=== PATIENT | female | born 1990 | race Caucasian/White ===

== ENCOUNTER 2016-06-23 07:35 | Emergency (ER) ==
[2016-06-23 07:41] VITALS: BP 116/76; TEMP 98.2; BMI 22.4
--- NOTE | 2016-06-23 07:59 | ED.PDOC ---
General ED Provider: Dr. LESLYE MARTIN JR Chief Complaint: Shoulder Pain/Injury Stated Complaint: patient states her co-worker had just mopped the floor and then they "started wrestling" and she fell landing on left shoulder and hitting head. denies loc. patient has bruising to left shoulder.[End]06/21/16 98.2 89 20 98% 116/76 9/10 Time Seen by Physician: 08:04 Mode of Arrival: Walk-In Information Source: Patient Nursing and Triage Documentation Reviewed and Agree: No Review of Systems - Review Of Systems Constitutional: Reports: No symptoms Eyes: Reports: No symptoms Ears, Nose, Mouth, Throat: Reports: No symptoms Respiratory: Reports: No symptoms Cardiac: Reports: No symptoms GI: Reports: No symptoms : Reports: No symptoms Musculoskeletal: Reports: Joint pain, Muscle pain, Other Skin: Reports: Bruising ( left ant-post abrasion tender swelling decr-rom ecchy) Neurological: Reports: No symptoms Endocrine: Reports: No symptoms Hematologic/Lymphatic: Reports: No symptoms All Other Systems: Other Past Medical History - Past Medical History Previously Healthy: Yes Endocrine: Reports: None Cardiovascular: Reports: None, Other (HEART MURMUR) Respiratory: Reports: Asthma Hematological: Reports: None Gastrointestinal: Reports: None Genitourinary: Reports: None Neuro/Psych: Reports: Bipolar Disorder Musculoskeletal: Reports: None Cancer: Reports: None Last Menstrual Period: 3 WEEKS AGO - Surgical History General Surgical History: Reports: None - Family History Family History: Reports: Unknown - Social History Smoking Status: Never smoker Hx Substance Use: Yes (MARIJUANA) Alcohol Screening: Occasionally Physical Exam - Physical Exam Appearance: Well-appearing, Thin Pain Distress: Moderate Eyes: VANIA, EOMI, Conjunctiva clear ENT: Ears normal, Nose normal, Oropharynx normal Neck: Supple Respiratory: Airway patent, Breath sounds clear, Breath sounds equal, Respirations nonlabored Cardiovascular: RRR, Pulses normal, No rub, No murmur GI/: Soft, Nontender, No masses, Bowel sounds normal, No Organomegaly Musculoskeletal: Limited ROM (left shoulder tender teres suprascapular deltiod no pectoral tenderness failt discoloration left ant post shoulder tender left scalp continued headache right skull nontender to percussion) Skin: Warm, Dry Neurological: Sensation intact, Motor intact, Reflexes intact, Cranial nerves intact (to testing no defecits), Alert, Oriented Psychiatric: Affect appropriate, Mood appropriate Interpretation - Radiology Interpretation Radiology Interpretation By: Radiologist Radiology Results: Negative Exam Interpreted: CT Scan (head) Radiology Interpretation By: Radiologist Radiology Results: Positive Exam Interpreted: Other (comminuted mildly displaced fracture distal left clavicle) Critical Care Note - Critical Care Note Total Time (mins): 0 Course - Course Orders, Labs, Meds: Lab Review 06/23/16 08:10 Urine Test Negative Orders Category Date Time Status Shoulder immobilizer [ED SPLINT APPLICATION] .ONCE EMERGENCY 06/23/16 09:22 Active URINE Stat LAB 06/23/16 08:[address] HEAD W/O CONTRAST Stat RADS 06/23/16 08:18 Completed SHOULDER, LEFT MIN 2V Stat RADS 06/23/16 07:59 Completed Vital Signs: Temp Pulse Resp BP Pulse Ox 06/23/16 07:37 98.2 F 89 20 116/76 98 Departure - Departure Time of Disposition: 09:30 Disposition: HOME SELF-CARE Discharge Problem: Clavicle fracture Qualifiers: Encounter type: initial encounter Clavicle location: lateral end Fracture type : closed Fracture alignment: displaced Laterality: left Qualifier Code: ( S42.032A) Displaced fracture of lateral end of left clavicle, initial encounter for closed fracture Instructions: Clavicle Fracture (ED) Condition: Good Pt referred to PMD for follow-up: Yes Additional Instructions: follow up PMD for consult orthopedics may follow up with [facility] [place] for pain not controlled by Tylenol Tylenol 650mg four times a day as needed; no more than 3500mg per 24 hours( [place] has Tylenol in it) no use left arm for two weeks Prescriptions: Hydrocodone Bit/Acetaminophen [[place] 5-325] 1 - 2 tab PO Q6HR PRN #20 tablet PRN Reason: pain Allergies/Adverse Reactions: Allergies nickel Adverse Reaction (Verified 06/23/16 07:41) Penicillins Adverse Reaction (Verified 06/23/16 07:41) Sulfa (Sulfonamide Antibiotics) Adverse Reaction (Verified 06/23/16 07:41) Home Medications: Ambulatory Orders Hydrocodone Bit/Acetaminophen [[place] 5-325] 1 - 2 tab PO Q6HR PRN #20 tablet
[2016-06-23 08:54] LABS: URINE PREGNANCY INTERNAL QC INTERNAL QC VALID
--- NOTE | 2016-06-23 09:18 | DI ---
EXAM: Three views of the left shoulder. History: Left shoulder trauma. Findings / impression: Mild to moderately displaced comminuted fracture of the distal left clavicle . No dislocation. The glenohumeral joint is intact.
--- NOTE | 2016-06-23 09:28 | CT ---
EXAM: CT Head HISTORY: Left headache, 3 days post fall COMPARISON: 05/05/2008 TECHNIQUE: CT head performed without contrast FINDINGS: There is no mass effect, midline shift, or intracranial hemmorhage. Sanderson white different iation is preserved. There is no extra-axial collection. The ventricles, sulci, and basal cisterns are patent and symmetric. There is no depressed calvarial fracture. The mastoid air cells are horace ar. The visualized paranasal sinuses are clear. IMPRESSION: No acute intracranial abnormality.
== END 2016-06-23 09:52 | disposition home or self-care (01) ==
LOC: ED 07:35
DX: S42.032A Displaced fracture of lateral end of left clavicle, initial encounter for closed fracture (principal); S09.90XA Unspecified injury of head, initial encounter; W01.0XXA Fall on same level from slipping, tripping and stumbling without subsequent striking against object, initial encounter
CPT/HCPCS: 81025; 99283

== ENCOUNTER 2017-05-17 11:04 | Emergency (ER) ==
[2017-05-17 11:08] VITALS: BP 116/76; TEMP 98.6; BMI 20.5
--- NOTE | 2017-05-17 12:19 | ED.PDOC ---
General ED Provider: Dr. OLINDA NEGRETE Chief Complaint: Respiratory Complaint Stated Complaint: high blood pressure Time Seen by Physician: 11:00 (in ED FOR HIGH BP WAS AT HIS DENTAL OFICE SYSTOLIC WAS 220 /100) Mode of Arrival: Walk-In Information Source: Patient Exam Limitations: No limitations Nursing and Triage Documentation Reviewed and Agree: Yes (NO CHEST PAIN) Reviewed sepsis parameters & appropriate labs ordered?: Yes System Inflammatory Response Syndrome: Not Applicable Sepsis Protocol: For patient's 13 years and over: Temp is 96.8 and below OR 101 and greater Pulse >90 BPM Resp >20/minute Acutely Altered Mental Status Are patient's symptoms suggestive of a new infection, such as: -Pneumonia -Skin, Soft Tissue -Endocarditis -UTI -Bone, Joint Infection -Implantable Device -Acute Abdominal Infection -Wound Infection -Meningitis -Blood Stream Catheter Infection -Unknown System Inflammatory Response Syndrome: Not Applicable Cardiovascular Complaint Exam - Chest Pain Complaint/Exam Onset: Gradual Duration: THIS MORNING AT DENTAL OFFICE NEGAT Symptoms Are: Still present Timing: Constant Length of Chest Pain Episodes: 0 Initial Severity: Moderate Current Severity: Mild Past Medical History - Past Medical History Previously Healthy: Yes Endocrine: Reports: None Cardiovascular: Reports: None, Other (HEART MURMUR) Respiratory: Reports: Asthma Hematological: Reports: None Gastrointestinal: Reports: None Genitourinary: Reports: None Neuro/Psych: Reports: Bipolar Disorder Musculoskeletal: Reports: None Cancer: Reports: None Last Menstrual Period: 2 weeks ago - Surgical History General Surgical History: Reports: None - Family History Family History: Reports: Unknown - Social History Smoking Status: Never smoker Hx Substance Use: No Alcohol Screening: None - Immunizations Tetanus Shot up to Date: No Course - Course Orders, Labs, Meds: Lab Review 05/17/17 05/17/17 11:15 11:40 Urine Test Negative Influenza A (Rapid) Negative by naat Influenza B (Rapid) Negative by naat Orders Category Date Time Status FLU A/B MOLECULAR Stat LAB 05/17/17 11:15 Completed MOLECULAR GROUP A STREP Stat LAB 05/17/17 11:15 Completed URINE Stat LAB 05/17/17 11:40 Completed CHEST, 2 VIEWS PA & LAT Stat RADS 05/17/17 11:22 Ordered Vital Signs: Temp Pulse Resp BP Pulse Ox 05/17/17 11:04 98.6 F 76 16 116/76 98 KELI Risk Score KELI Risk Score: Risk Score Odds of by 30D 0 0.1 (0.1-0.2) 1 0.3 (0.2-0.3) 2 0.4 (0.3-0.5) 3 0.7 (0.6-0.9) 4 1.2 (1.0-1.5) 5 2.2 (1.9-2.6) 6 3.0 (2.5-3.6) 7 4.8 (3.8-6.1) Departure - Departure Allergies/Adverse Reactions: Allergies nickel Adverse Reaction (Verified 06/23/16 07:41) Penicillins Adverse Reaction (Verified 06/23/16 07:41) Sulfa (Sulfonamide Antibiotics) Adverse Reaction (Verified 06/23/16 07:41)
--- NOTE | 2017-05-17 12:23 | ED.PDOC ---
General ED Provider: Dr. OLINDA NEGRETE Chief Complaint: Respiratory Complaint Mode of Arrival: Walk-In Information Source: Patient Sepsis Protocol: For patient's 13 years and over: Temp is 96.8 and below OR 101 and greater Pulse >90 BPM Resp >20/minute Acutely Altered Mental Status Are patient's symptoms suggestive of a new infection, such as: -Pneumonia -Skin, Soft Tissue -Endocarditis -UTI -Bone, Joint Infection -Implantable Device -Acute Abdominal Infection -Wound Infection -Meningitis -Blood Stream Catheter Infection -Unknown Cardiovascular Complaint Exam - Hypertension Complaint/Exam Onset/Duration: TODAY AT DENTAL OFFICE 200/100 DECIDED TO COME TO ED NEGATIVE CHEST PAIN Symptoms Are: Still present Aggravating: Reports: None Alleviating: Reports: None Associated Signs and Symptoms: Denies: Chest pain, Vision changes, Anxiety, Recent stress, Headache, Numbness, Tingling, Weakness, Dizziness, Short of air, Swelling Related History: Reports: Similar episode Related Surgical History: Reports: None Cardiac Risk Factors: Reports: Hypertension Recent Change in Medications: No A/V Nicking: No Papilledema Present: No JVD Present: No Carotid Bruit Present: No Femoral Pulses Bounding: No Differential Diagnoses: Hypertension Quality Indicator For Non-Traumatic Chest Pain/Syncope: EKG Performed Review of Systems - Review Of Systems Constitutional: Reports: No symptoms Eyes: Reports: No symptoms Ears, Nose, Mouth, Throat: Reports: No symptoms Respiratory: Reports: No symptoms Cardiac: Reports: No symptoms GI: Reports: No symptoms : Reports: No symptoms Musculoskeletal: Reports: No symptoms Skin: Reports: No symptoms Neurological: Reports: No symptoms Endocrine: Reports: No symptoms Hematologic/Lymphatic: Reports: No symptoms All Other Systems: Reviewed and Negative Past Medical History - Past Medical History Previously Healthy: Yes Endocrine: Reports: None Cardiovascular: Reports: None, Other (HEART MURMUR) Respiratory: Reports: Asthma Hematological: Reports: None Gastrointestinal: Reports: None Genitourinary: Reports: None Neuro/Psych: Reports: Bipolar Disorder Musculoskeletal: Reports: None Cancer: Reports: None Last Menstrual Period: 2 weeks ago - Surgical History General Surgical History: Reports: None - Family History Family History: Reports: Unknown - Social History Smoking Status: Never smoker Hx Substance Use: No Alcohol Screening: None - Immunizations Tetanus Shot up to Date: No Physical Exam - Physical Exam Appearance: Well-appearing, No pain distress, Well-nourished Eyes: VANIA, EOMI, Conjunctiva clear ENT: Ears normal, Nose normal, Oropharynx normal Respiratory: Airway patent, Breath sounds clear, Breath sounds equal, Respirations nonlabored Cardiovascular: RRR, Pulses normal, No rub, No murmur GI/: Soft, Nontender, No masses, Bowel sounds normal, No Organomegaly Musculoskeletal: Normal strength, ROM intact, No edema, No calf tenderness Skin: Warm, Dry, Normal color Neurological: Sensation intact, Motor intact, Reflexes intact, Cranial nerves intact, Alert, Oriented Psychiatric: Affect appropriate, Mood appropriate Course - Course Orders, Labs, Meds: Lab Review 05/17/17 05/17/17 11:15 11:40 Urine Test Negative Influenza A (Rapid) Negative by naat Influenza B (Rapid) Negative by naat Orders Category Date Time Status FLU A/B MOLECULAR Stat LAB 05/17/17 11:15 Completed MOLECULAR GROUP A STREP Stat LAB 05/17/17 11:15 Completed URINE Stat LAB 05/17/17 11:40 Completed CHEST, 2 VIEWS PA & LAT Stat RADS 05/17/17 11:22 Ordered Vital Signs: Temp Pulse Resp BP Pulse Ox 05/17/17 11:04 98.6 F 76 16 116/76 98 KELI Risk Score KELI Risk Score: Risk Score Odds of by 30D 0 0.1 (0.1-0.2) 1 0.3 (0.2-0.3) 2 0.4 (0.3-0.5) 3 0.7 (0.6-0.9) 4 1.2 (1.0-1.5) 5 2.2 (1.9-2.6) 6 3.0 (2.5-3.6) 7 4.8 (3.8-6.1) Departure - Departure Allergies/Adverse Reactions: Allergies nickel Adverse Reaction (Verified 06/23/16 07:41) Penicillins Adverse Reaction (Verified 06/23/16 07:41) Sulfa (Sulfonamide Antibiotics) Adverse Reaction (Verified 06/23/16 07:41)
--- NOTE | 2017-05-17 12:29 | DI ---
Exam: Chest two-view HISTORY: Cough. Comparison: 12/16/2009. FINDINGS: Two views of the chest demonstrate hyper expanded lungs with no evidence of pneumonia or e harman. Calcified granulomata are again noted. The heart is normal in size and configuration. The pulm onary vasculature is not congested. The skeletal structures are intact. Thoracic levoscoliosis is ag ain noted. IMPRESSION: No acute cardiopulmonary disease.
--- NOTE | 2017-05-17 12:35 | ED.PDOC ---
General ED Provider: Dr. OLINDA NEGRETE Chief Complaint: Respiratory Complaint Stated Complaint: FLU LIKE SYMP Time Seen by Physician: 11:00 Mode of Arrival: Walk-In Information Source: Patient Exam Limitations: No limitations Nursing and Triage Documentation Reviewed and Agree: Yes Reviewed sepsis parameters & appropriate labs ordered?: Yes (INDERJIT PRESENT AT ALL TIMES ) System Inflammatory Response Syndrome: Not Applicable Sepsis Protocol: For patient's 13 years and over: Temp is 96.8 and below OR 101 and greater Pulse >90 BPM Resp >20/minute Acutely Altered Mental Status Are patient's symptoms suggestive of a new infection, such as: -Pneumonia -Skin, Soft Tissue -Endocarditis -UTI -Bone, Joint Infection -Implantable Device -Acute Abdominal Infection -Wound Infection -Meningitis -Blood Stream Catheter Infection -Unknown System Inflammatory Response Syndrome: Not Applicable EENT Complaint Exam - Throat Complaint/Exam Onset/Duration: 1 WEEK Symptoms Are: Still present Timimg: Intermittent Initial Severity: Mild Current Severity: Mild Aggravating: Reports: None Alleviating: Reports: None Associated Signs and Symptoms: Reports: Cough, Nasal congestion. Denies: Fever , Dysphagia, Drooling, Foreign body sensation, Chills, Wheezing, Hoarseness, Sinus discomfort, Difficulty breathing, Lethargy, Irritability, Decreased activity, Vomiting, Diarrhea, Decreased hearing, Ear drainage Uvula Midline: Yes Savannah-tonsillar Fluctuence: No Scarlatinaform Rash Present: No Stridor Present: No Sinus Tenderness Present: No Tonsillar Hypertrophy Present: No Tonsillar Exudate Present: No [place]annah-tonsillar Swelling Present: No Adenopathy Present: No Splenomegaly Present: No Differential Diagnoses: URI Review of Systems - Review Of Systems Constitutional: Reports: No symptoms Eyes: Reports: No symptoms Ears, Nose, Mouth, Throat: Reports: Throat pain Respiratory: Reports: Cough Cardiac: Reports: No symptoms GI: Reports: No symptoms : Reports: No symptoms Musculoskeletal: Reports: No symptoms Skin: Reports: No symptoms Neurological: Reports: No symptoms Endocrine: Reports: No symptoms Hematologic/Lymphatic: Reports: No symptoms All Other Systems: Reviewed and Negative Past Medical History - Past Medical History Previously Healthy: Yes Endocrine: Reports: None Cardiovascular: Reports: None, Other (HEART MURMUR) Respiratory: Reports: Asthma Hematological: Reports: None Gastrointestinal: Reports: None Genitourinary: Reports: None Neuro/Psych: Reports: Bipolar Disorder Musculoskeletal: Reports: None Cancer: Reports: None Last Menstrual Period: 2 weeks ago - Surgical History General Surgical History: Reports: None - Family History Family History: Reports: Unknown - Social History Smoking Status: Never smoker Hx Substance Use: No Alcohol Screening: None - Immunizations Tetanus Shot up to Date: No Physical Exam - Physical Exam Appearance: Well-appearing, No pain distress, Well-nourished Eyes: VANIA, EOMI, Conjunctiva clear ENT: Ears normal, Nose normal, Oropharynx normal Respiratory: Airway patent, Breath sounds clear, Breath sounds equal, Respirations nonlabored Cardiovascular: RRR, Pulses normal, No rub, No murmur GI/: Soft, Nontender, No masses, Bowel sounds normal, No Organomegaly Musculoskeletal: Normal strength, ROM intact, No edema, No calf tenderness Skin: Warm, Dry, Normal color Neurological: Sensation intact, Motor intact, Reflexes intact, Cranial nerves intact, Alert, Oriented Psychiatric: Affect appropriate, Mood appropriate Interpretation - Radiology Interpretation Radiology Interpretation By: Radiologist Radiology Results: No acute changes Critical Care Note - Critical Care Note Total Time (mins): 0 Course - Course Orders, Labs, Meds: Lab Review 05/17/17 05/17/17 11:15 11:40 Urine Test Negative Influenza A (Rapid) Negative by naat Influenza B (Rapid) Negative by naat Orders Category Date Time Status FLU A/B MOLECULAR Stat LAB 05/17/17 11:15 Completed MOLECULAR GROUP A STREP Stat LAB 05/17/17 11:15 Completed URINE Stat LAB 05/17/17 11:40 Completed CHEST, 2 VIEWS PA & LAT Stat RADS 05/17/17 11:22 Completed Vital Signs: Temp Pulse Resp BP Pulse Ox 05/17/17 11:04 98.6 F 76 16 116/76 98 Departure - Departure Time of Disposition: 12:34 Disposition: HOME SELF-CARE Discharge Problem: Cough, Viral syndrome Instructions: Viral Syndrome (ED) Condition: Good Pt referred to PMD for follow-up: Yes IPMP verified?: No Additional Instructions: Please call your Family Physician as soon as possible to schedule a follow-up appointment. Allergies/Adverse Reactions: Allergies nickel Adverse Reaction (Verified 06/23/16 07:41) Penicillins Adverse Reaction (Verified 06/23/16 07:41) Sulfa (Sulfonamide Antibiotics) Adverse Reaction (Verified 03/30/17 07:41) Disposition Discussed With: Patient, Family
== END 2017-05-17 12:41 | disposition home or self-care (01) ==
LOC: ED 11:04
DX: B34.9 Viral infection, unspecified (principal); R05 Cough
CPT/HCPCS: 81025; 87502; 87651; 99282

== ENCOUNTER 2017-05-21 09:48 | Inpatient (IN) ==
[2017-05-21] MEDS ORDERED: DUONEB NEB STA (09:56)
[2017-05-21] MEDS ORDERED: SODIUM CHLORIDE 1,000 ML IV STA (10:26)
[2017-05-21] MEDS ORDERED: ATIVAN IVP STA (10:33)
--- NOTE | 2017-05-21 10:41 | DI ---
EXAM: PA and lateral views of the chest HISTORY: Cough COMPARISON: Chest Xray from 05/17/2017 FINDINGS: There is a new infiltrate in the right middle lobe. There are also some minimal patchy inc reased lung markings in the lower lateral aspect of the right lung base. There is some flattening of the hemidiaphragms. Cardiac and mediastinal silhouettes show no acute abnormality. No acute osseous or soft tissue abnormalities. IMPRESSION: 1. New right middle lobe pneumonia with some minimal increased lung markings also noted in the right lateral lung base.
[2017-05-21] MEDS ORDERED: LEVAQUIN 750 MG in PREMIX 150 ML D5W 1 BAG IV STA (10:47)
[2017-05-21] MEDS ORDERED: LEVAQUIN 150 ML IV ONE (11:02)
--- NOTE | 2017-05-21 12:01 | ED.PDOC ---
General ED Provider: Dr. REFUGIO CAMPOS-ER Chief Complaint: Cough Stated Complaint: was seen 3 days ago and placed on steroids for resp symptoms-- now with cough and dyspnea Time Seen by Physician: 09:55 Mode of Arrival: Walk-In Information Source: Patient Exam Limitations: No limitations Nursing and Triage Documentation Reviewed and Agree: Yes Reviewed sepsis parameters & appropriate labs ordered?: Yes System Inflammatory Response Syndrome: Not Applicable Sepsis Protocol: For patient's 13 years and over: Temp is 96.8 and below OR 101 and greater Pulse >90 BPM Resp >20/minute Acutely Altered Mental Status Are patient's symptoms suggestive of a new infection, such as: -Pneumonia -Skin, Soft Tissue -Endocarditis -UTI -Bone, Joint Infection -Implantable Device -Acute Abdominal Infection -Wound Infection -Meningitis -Blood Stream Catheter Infection -Unknown Respiratory Complaint Exam - Shortness of Air Complaint/Exam Onset/Duration: 3 days Symptoms Are: Still present Timing: Intermittent Initial Severity: Mild Current Severity: Moderate Character: Reports: Dyspnea at rest, Dyspnea on exertion Aggravating: Reports: None Alleviating: Reports: Spontaneous resolution Associated Signs and Symptoms: Reports: Cough. Denies: Wheezing, Chest pain with cough, Chest pain, Fever, Chills, Diaphoresis, Nasal congestion, Dizziness , Calf pain, Calf swelling, Edema, Rapid breathing, Labored breathing, Decreased intake History of Healthcare-Acquired Pneumonia: No Tuberculosis Risk Factors: Reports: None Home Oxygen Use: No Stridor Present: No Tracheal Deviation: No Subcutaneous Emphysema: No Accessory Muscle Use: Yes Retractions: Not Present Diminished Breath Sounds: No Prolonged Expiratory Phase: No Unable to Speak Full Sentences: No Fatigue: No Leg Swelling: No Nicole's Sign Present: No Grunting Respirations: No Kussmaul Respirations: No Differential Diagnoses: Pneumonia, Bronchitis Review of Systems - Review Of Systems Constitutional: Reports: No symptoms Eyes: Reports: No symptoms Ears, Nose, Mouth, Throat: Reports: No symptoms Respiratory: Reports: Cough, Short of air Cardiac: Reports: No symptoms GI: Reports: No symptoms : Reports: No symptoms Musculoskeletal: Reports: No symptoms Skin: Reports: No symptoms Neurological: Reports: No symptoms Endocrine: Reports: No symptoms Hematologic/Lymphatic: Reports: No symptoms All Other Systems: Reviewed and Negative Past Medical History - Past Medical History Previously Healthy: Yes Endocrine: Reports: None Cardiovascular: Reports: None, Other (HEART MURMUR) Respiratory: Reports: Asthma Hematological: Reports: None Gastrointestinal: Reports: None Genitourinary: Reports: None Neuro/Psych: Reports: Bipolar Disorder Musculoskeletal: Reports: None Cancer: Reports: None Last Menstrual Period: TWO WEEKS AGO (PATIENT HAS IRREGULAR PERIODS) - Surgical History General Surgical History: Reports: None - Family History Family History: Reports: Unknown - Social History Smoking Status: Never smoker Hx Substance Use: No Alcohol Screening: None - Immunizations Tetanus Shot up to Date: Yes Physical Exam - Physical Exam Appearance: Well-appearing, No pain distress, Well-nourished Eyes: VANIA, EOMI, Conjunctiva clear ENT: Ears normal, Nose normal, Oropharynx normal Neck: Supple Respiratory: Airway patent, Breath sounds equal, Crackles Cardiovascular: RRR, Pulses normal, No rub, No murmur GI/: Soft Musculoskeletal: Normal strength, ROM intact, No edema, No calf tenderness Skin: Warm, Dry, Normal color Neurological: Sensation intact, Motor intact, Reflexes intact, Cranial nerves intact, Alert, Oriented Psychiatric: Affect appropriate, Mood appropriate, Anxious Interpretation - Radiology Interpretation Radiology Interpretation By: Radiologist Radiology Results: Positive Exam Interpreted: CT Scan Physician Notification - Case Discussed Physician Notified: dr vargas Time of Notification: 12:59 Critical Care Note - Critical Care Note Total Time (mins): 0 Course - Course Hematology/Chemistry: 05/21/17 10:45 05/21/17 10:45 Orders, Labs, Meds: Lab Review 05/21/17 05/21/17 05/21/17 10:00 10:27 10:45 WBC 16.29 H RBC 4.31 Hgb 13.2 Hct 36.4 L MCV 84.5 MCH 30.6 MCHC 36.3 H RDW Coeff of Claus 12.5 Plt Count 224 Immature Gran % (Auto) 0.5 Neut % (Auto) 69.7 Lymph % (Auto) 21.2 [place] % (Auto) 8.2 Eos % (Auto) 0.0 Baso % (Auto) 0.4 Immature Gran # (Auto) 0.1 Neut # 11.4 H Lymph # 3.5 H [place] # 1.3 Eos # 0.0 Baso # 0.1 Puncture Site Rr O2 Saturation 99.0 ABG pH 7.550 H* ABG pCO2 23.5 L ABG pO2 106.0 H ABG HCO3 20.6 L ABG Total CO2 21 L ABG Base Excess -2 Patrick Test + FiO2 % 21.0 Sodium Potassium Chloride Carbon Dioxide Anion Gap BUN Creatinine Estimated GFR (MDRD) BUN/Creatinine Ratio Glucose Calcium Total Bilirubin AST ALT Alkaline Phosphatase Total Protein Albumin Globulin Albumin/Globulin Ratio Serum , Qual Influenza A (Rapid) Negative by naat Influenza B (Rapid) Negative by naat 05/21/17 05/21/17 10:45 10:45 WBC RBC Hgb Hct MCV MCH MCHC RDW Coeff of Claus Plt Count Immature Gran % (Auto) Neut % (Auto) Lymph % (Auto) [place] % (Auto) Eos % (Auto) Baso % (Auto) Immature Gran # (Auto) Neut # Lymph # [place] # Eos # Baso # Puncture Site O2 Saturation ABG pH ABG pCO2 ABG pO2 ABG HCO3 ABG Total CO2 ABG Base Excess Patrick Test FiO2 % Sodium 139 Potassium 2.7 L* Chloride 106 Carbon Dioxide 20 L Anion Gap 15.7 BUN 6 L Creatinine 0.59 L Estimated GFR (MDRD) 123.00 BUN/Creatinine Ratio 10.16 Glucose 112 H Calcium 8.9 Total Bilirubin 0.9 AST 11 L ALT 14 Alkaline Phosphatase 65 Total Protein 7.0 Albumin 3.5 Globulin 3.5 Albumin/Globulin Ratio 1.00 Serum , Qual Negative Influenza A (Rapid) Influenza B (Rapid) Orders Category Date Time Status ABG DRAW REQUEST Stat CARDIO 05/21/17 10:27 Completed NEBULIZER TREATMENT Stat CARDIO 05/21/17 09:56 Completed NPO REMINDER: IMAGING ONCE CARE 05/21/17 10:30 Completed IV [ED IV/MEDIPORT/POWERPORT] .ONCE EMERGENCY 05/21/17 10:26 Active ARTERIAL BLOOD GAS [ABG] Stat LAB 05/21/17 10:27 Completed BLOOD CULTURE (ED ONLY) Stat LAB 05/21/17 10:45 Received CBC W/ AUTO DIFF Stat LAB 05/21/17 10:45 Completed CMP [COMPREHENSIVE METABOLIC PANEL] Stat LAB 05/21/17 10:45 Completed FLU A/B MOLECULAR Stat LAB 05/21/17 10:00 Completed SERUM Stat LAB 05/21/17 10:45 Completed 0.9 % Sodium Chloride [Saline Flush] MEDS 05/21/17 10:26 Active 1 syr IVF PRN PRN Ipratropium/Albuterol Neb [Duoneb] MEDS 05/21/17 09:56 Discontinued 1 vial NEB ONCE STA Levofloxacin/D5w [Levaquin] 150 ml MEDS 05/21/17 11:02 Discontinued IV .STK-MED Levofloxacin/D5w [Levaquin] 750 mg MEDS 05/21/17 10:47 Discontinued Premix 150 ml D5w 1 bag IV ONCE Lorazepam Inj [Ativan] MEDS 05/21/17 10:33 Discontinued 0.5 mg IVP ONCE STA Ondansetron HCl/Pf [Zofran 4 mg/2 ml] MEDS 05/21/17 12:56 Discontinued 4 mg IVP ONCE STA Potassium Chloride Additive [Potassium Chloride 20 Meq MEDS 05/21/17 12:58 Ordered Vial-Additive Only] 20 meq 0.9 % Sodium Chloride [Sodium Chloride] 100 ml IV ONCE Potassium Chloride [K-Dur] MEDS 05/21/17 12:57 Discontinued 20 meq PO ONCE STA Sodium Chloride 0.9% [Sodium Chloride] 1,000 ml MEDS 05/21/17 10:26 Active IV 100 mls/hr CT CHEST PE PROTOCOL Stat RADS 05/21/17 10:29 Completed CXR [CHEST, 2 VIEWS PA & LAT] Stat RADS 05/21/17 09:56 Completed Medications Generic Name Dose Route Start Last Admin Trade Name Freq PRN Reason Stop Dose Admin Sodium Chloride 1,000 mls @ 100 mls/hr 05/21/17 10:26 05/21/17 11:15 Sodium Chloride IV 05/21/17 20:25 100 mls/hr .Q10H STA Administration Sodium Chloride 1 syr 05/21/17 10:26 Saline Flush IVF PRN PRN To flush IV Discontinued Medications Generic Name Dose Route Start Last Admin Trade Name Freq PRN Reason Stop Dose Admin Albuterol/Ipratropium 1 vial 05/21/17 09:56 05/21/17 10:06 Duoneb NEB 05/21/17 09:57 1 vial ONCE STA Administration Levofloxacin/Dextrose 750 mg/ 150 mls @ 100 mls/hr 05/21/17 10:47 05/21/17 11 :15 Dextrose IV 05/21/17 12:16 100 mls/hr ONCE STA Administration Lorazepam 0.5 mg 05/21/17 10:33 05/21/17 11:14 Ativan IVP 02/25/18 10:34 0.5 mg ONCE STA Administration Ondansetron HCl 4 mg 05/21/17 12:56 Zofran 4 Mg/2 Ml IVP 05/21/17 12:57 ONCE STA Potassium Chloride 20 meq 05/21/17 12:57 K-Dur PO 05/21/17 12:58 ONCE STA Vital Signs: Temp Pulse Resp BP Pulse Ox 05/21/17 09:49 99.3 F 83 18 125/78 98 Departure - Departure Time of Disposition: 12:59 Disposition: ADMITTED INPATIENT Discharge Problem: Pneumonia Qualifiers: Pneumonia type: due to unspecified organism Laterality: bilateral Lung location : unspecified part of lung Qualified Code(s): J18.9 - Pneumonia, unspecified organism Instructions: Pneumonitis (ED) Condition: Good Pt referred to PMD for follow-up: Yes IPMP verified?: No Allergies/Adverse Reactions: Allergies nickel Adverse Reaction (Verified 05/21/17 09:52) Penicillins Adverse Reaction (Verified 05/21/17 09:52) Sulfa (Sulfonamide Antibiotics) Adverse Reaction (Verified 05/21/17 09:52) Home Medications: Ambulatory Orders 1 [No Reported Medications] 05/21/17 Disposition Discussed With: Patient, Family
--- NOTE | 2017-05-21 12:50 | CT ---
EXAM: CT angiogram of the chest with contrast HISTORY: Dyspnea TECHNIQUE: Imaging of the chest was performed following the intravenous administration of contrast. 3 mm thin axial images and coronal and sagittal reconstructions and rotated 3-D reconstructions were provided for interpretation. Comparison none. FINDINGS: No definite filling defects are identified within the branches of the pulmonary arteries. The central pulmonary arteries are normal. The heart is normal size. There is a normal appearance o f the thoracic aorta. Infiltrates are seen in the left lower lobe and within the right middle lobe an d right lower lobe of the lung. There is no pleural effusion. Lungs are otherwise clear. No lytic or blastic lesions are seen within the osseous structures. IMPRESSION: There is no acute pulmonary embolism. Bilateral pneumonia.
[2017-05-21] MEDS ORDERED: ZOFRAN 4 MG/2 ML IVP STA (12:56)
[2017-05-21] MEDS ORDERED: K-DUR PO STA (12:57)
[2017-05-21] MEDS ORDERED: POTASSIUM CHLORIDE 20 MEQ VIAL-ADDITIVE ONLY 20 MEQ in SODIUM CHLORIDE 100 ML IV STA (12:58)
[2017-05-21] MEDS ORDERED: SODIUM CHLORIDE 0.9%-KCL 20 MEQ 1,000 ML IV SCH (13:00)
[2017-05-21] MEDS ORDERED: TYLENOL PO PRN (13:00)
[2017-05-21] MEDS ORDERED: ZOFRAN 4 MG/2 ML IVP PRN (13:04)
[2017-05-21 13:37] VITALS: BMI 20.4
[2017-05-21] MEDS: SODIUM CHLORIDE 0.9%-KCL 20 MEQ 1,000 ML IV SCH (14:47)
[2017-05-21] MEDS: XOPENEX 0.63 MG NEB SCH ×2 (18:16→22:35)
[2017-05-21] MEDS: ATIVAN PO SCH (21:45)
[2017-05-21] MEDS: SOLU-MEDROL 40 MG IVP SCH (21:45)
[2017-05-21] MEDS ORDERED: MOTRIN PO STA (22:28)
[2017-05-22] MEDS: XOPENEX 0.63 MG NEB SCH ×3 (05:02→17:05)
[2017-05-22] MEDS ORDERED: PHENERGAN WITH CODEINE 6.25/10 MG/5 ML ONE (08:25)
[2017-05-22] MEDS: LEVAQUIN 500 MG in PREMIX 100 ML D5W 1 BAG IV SCH (09:01)
[2017-05-22] MEDS: SODIUM CHLORIDE 0.9%-KCL 20 MEQ 1,000 ML IV SCH (09:02)
[2017-05-22] MEDS: LOVENOX SUBCUT SCH (09:03)
[2017-05-22] MEDS: SOLU-MEDROL 40 MG IVP SCH ×2 (09:03→20:58)
[2017-05-22] MEDS: PHENERGAN WITH CODEINE 6.25/10 MG/5 ML PO PRN (17:14)
[2017-05-22] MEDS: ATIVAN PO SCH (20:58)
[2017-05-23] MEDS: XOPENEX 0.63 MG NEB SCH ×5 (00:27→22:30)
[2017-05-23] MEDS: PHENERGAN WITH CODEINE 6.25/10 MG/5 ML PO PRN ×2 (02:46→20:41)
[2017-05-23] MEDS ORDERED: ATIVAN PO STA (08:50)
[2017-05-23] MEDS: LEVAQUIN 500 MG in PREMIX 100 ML D5W 1 BAG IV SCH (08:55)
[2017-05-23] MEDS: SOLU-MEDROL 40 MG IVP SCH ×2 (08:55→20:41)
[2017-05-23] MEDS: LOVENOX SUBCUT SCH (08:56)
[2017-05-23] MEDS: SODIUM CHLORIDE 0.9%-KCL 20 MEQ 1,000 ML IV SCH (09:02)
--- NOTE | 2017-05-23 09:05 | DI ---
EXAM: CHEST FRONTAL AND LATERAL VIEWS HISTORY: Bilateral pneumonia, follow-up. FINDINGS / IMPRESSION: Compared to 05/21/2017. Heart size and mediastinal contour remain within normal limits. Improving infiltrate which is thought to be in the right middle lobe with minimal residual. Lungs were otherwise clear. Normal vasculari ty. No pleural fluid.
[2017-05-23] MEDS: ATIVAN PO SCH (20:41)
[2017-05-24] MEDS: SODIUM CHLORIDE 0.9%-KCL 20 MEQ 1,000 ML IV SCH ×2 (04:07→11:48)
[2017-05-24] MEDS: PHENERGAN WITH CODEINE 6.25/10 MG/5 ML PO PRN (04:46)
[2017-05-24] MEDS: XOPENEX 0.63 MG NEB SCH ×2 (06:00→11:26)
[2017-05-24] MEDS: SOLU-MEDROL 40 MG IVP SCH (08:40)
[2017-05-24] MEDS: LOVENOX SUBCUT SCH (08:41)
[2017-05-24] MEDS: LEVAQUIN 500 MG in PREMIX 100 ML D5W 1 BAG IV SCH (08:41)
[2017-05-24 10:49] VITALS: BP 106/68; TEMP 98
--- NOTE | 2017-05-25 14:40 | DS ---
DATE OF SERVICE: 05/24/17 FINAL DIAGNOSIS: 1. Community acquired pneumonia, bibasilar 2. Leukocytosis secondary to pneumonia 3. Severe hypokalemia which has been corrected 4. Insomnia 5. ADHD 6. Paranoid 7. Bipolar DISCHARGE INSTRUCTIONS: Discharge the patient home. MEDICATIONS AT DISCHARGE/NEW PRESCRIPTIONS: ProAir inhaler PRN Prednisone 10mg PO twice a day Levaquin 500mg PO daily for 4 more day DIET INSTRUCTIONS: Regular diet ACTIVITY: As much as tolerated SMOKING: Never smoker DISEASE SPECIFIC EDUCATION: Pneumonia Antibiotic use and diarrhea been discussed and verbalized understanding. HOSPITAL COURSE: Riya Varner 26 year old female came to the emergency room with cough, congestion and shortness of breath was seen by Dr. Snyder. CT of chest showed the bilateral basilar pneumonia and Flu was negative. The patient is allergic to Penicillin so the patient was started on Levaquin and breathing treatments. The patient did have a fever 99.3. Lovenox for the DVT prophylaxis. Ativan was given to help her with the sleep. Solu-Medrol 40Q 12 hours was given. With the given treatment the patient was up and about walking and did not have any problems. Coughing has improved. For coughing we did give her the Phenergan with codeine. Potassium being replaced with IV Potassium and PO, Potassium came up to 2.8 and 3.3 and 3.7. Repeat chest x-ray was showing the improvement in the consolidation. At that time the patient being discharged home. TIME SPENT: MORE THAN 35 MINUTES MTDD
--- NOTE | 2017-05-25 15:14 | PN ---
DATE OF SERVICE: 05/22/17 SUBJECTIVE: Coughing and congestion is better. Potassium went up to 3.4. The patient is refusing to get the IV Potassium as it will hurt her. REVIEW OF SYSTEMS: CONSTITUTIONAL: No fever, no chills. HEENT: Normal. ENDOCRINE: No weight gain, no weight loss. CVS: No angina symptoms. No CHF symptoms. No palpitations. No atypical chest pain for CAD. No shortness of breath. No PND, no orthopnea. RESPIRATORY: Cough and congestion, no hemoptysis. Not able to get any phlegm, feeling like something is in the throat. GI: No nausea, no vomiting. No abdominal pain. : No hematuria. No polyuria. MUSCULOSKELETAL: No joint swelling. PSYCHIATRIC: Not anxious. No depression. No suicidal thoughts. No homicidal thoughts. SKIN: Intact. No rash. PHYSICAL EXAMINATION: V/S: Blood pressure 106/63, respiratory rate 20, heart rate 76, temperature 97.7 , saturation 97. HEENT: Normocephalic, atraumatic. NECK: Supple. No JVD, no carotid bruit. No lymphadenopathy. LUNGS: Decreased and basilar crackles. Clear to auscultation. No rales or rhonchi. HEART: S1, S2 normal. No S3. No murmur, gallop or regurgitation. ABDOMEN: Soft, nontender. Bowel sounds active. No rigidity. No rebound or guarding. No CVA tenderness. EXTREMITIES: No pedal edema. No clubbing or cyanosis MUSCULOSKELETAL: No joint swelling. NEUROLOGIC: Awake, alert, oriented times three. No focal deficit. LYMPHATIC: No lymph nodes palpable. SKIN: Intact. LABS: Sodium 140, potassium 3.3, chloride 109, bicarb 21, BUN 8, creatinine 0.59, WBC 8.42, hgb 12.4, hct 35.8, plt count 228. ASSESSMENT: 1. Community acquired pneumonia, bibasilar 2. Severe hypokalemia 3. Bipolar disorder 4. Depression 5. Substance use PLAN: 1. Continue the Levaquin, Xopenex and Phenergan with Codeine 2. Replace the Potassium 3. Keep checking the Potassium TIME SPENT: More than 35 minutes MTDD
--- NOTE | 2017-05-25 15:31 | HP ---
DATE OF SERVICE: 05/21/17 CHIEF COMPLAINT: Cough HISTORY OF PRESENT ILLNESS: This is a 26 year old female came to the emergency room for the worsening of the cough, congestion getting yellow/green phlegm. Initially was seen in the ER earlier this last week and was test for the flu and strep and was told it was negative. The patient also was told she didn't have bronchitis and was given some steroids and was discharged home. The patient started feeling worse and came back to the emergency room and seen by Dr. Snyder in the emergency room. Temperature was 99. WBC 16,000. ABG showed pH 7.550, pCO2 23.5, pO2 106 and potassium was 2.7. Chest x-ray as well as CT of the chest done which showed bilateral pneumonia. At that time the patient was admitted to the hospital for IV antibiotics, breathing treatments and the steroids. REVIEW OF SYSTEMS: CONSTITUTIONAL: Fever and chills. Weakness and tiredness. HEENT: Normal. ENDOCRINE: No weight gain; no weight loss. CVS: No chest pain. No PND, no orthopnea. Shortness of breath. No PND, no orthopnea. RESPIRATORY: Cough, Congestion. No hemoptysis. GI: No nausea, no vomiting. No abdominal pain. No melena. : No hematuria. No polyuria. MUSCULOSKELETAL: No joint swelling. PSYCHIATRIC: Not anxious. No depression. No suicidal thoughts. No homicidal thoughts. SKIN: Intact, no open lesions. PAST MEDICAL HISTORY: Heart murmur History of pneumonia GERD Urinary tract infection ADHD Paranoid disorder Bipolar disorder Substance use on weed PAST SURGICAL HISTORY: None PERSONAL HISTORY: Smoke week and smoking. Family history not significant. MEDICATIONS: Lorazepam Zofran Motrin ALLERGIES: Nickel Penicillin Sulfa PHYSICAL EXAMINATION: V/S: Temperature 98.2, pulse 85, respiratory rate 16, blood pressure 113/67 and pulse ox 98%. HEENT: Atraumatic, normocephalic. No scleral icterus. NECK: Supple. No JVD, no bruit. No lymphadenopathy. No thyromegaly. HEART: S1, S2 normal. No murmur. No cyanosis or clubbing. No ascites. LUNGS: Clear to auscultation. No rales or rhonchi. ABDOMEN: Soft, nontender. Bowel sounds are active. No CVA tenderness. No rigidity or guarding. EXTREMITIES: No pedal edema. No cyanosis or clubbing MUSCULOSKELETAL: Normal joints, no swelling. NEUROLOGIC: The patient is SKIN: Intact; no open lesions. LYMPHATIC: No lymph nodes palpable. LABS: Sodium 139, potassium 2.7, chloride 106, bicarb 20, BUN 6, creatinine 0.59, WBC 16.29, hgb 13.2, hct 36.4, plt count 224. ASSESSMENT: 1. Bilateral community acquired pneumonia 2. Severe hypokalemia 3. History of bipolar disorder 4. Eating disorder 5. Substance use disorder PLAN: 1. Admit patient to regular floor 2. CBC and CMP today and daily 3. IV fluids 4. Levaquin 750mg daily 5. Lovenox for the DVT prophylaxis 6. Xopenex 7. Solu-Medrol 40 Q 12 hours 8. IV fluids with Potassium 9. Daily I&Os TIME SPENT: MORE THAN 70 minutes MTDD
== END 2017-05-24 12:38 | disposition home or self-care (01) | DRG 195 ==
LOC: ED 09:48 → MEDSURG A 12:59
PROVIDERS: ADMIT Emergency Medicine; ATTEND Emergency Medicine
DX: J18.9 Pneumonia, unspecified organism (principal); R06.00 Dyspnea, unspecified; E87.6 Hypokalemia; D72.829 Elevated white blood cell count, unspecified; G47.00 Insomnia, unspecified; F90.9 Attention-deficit hyperactivity disorder, unspecified type; F60.0 Paranoid personality disorder; F31.9 Bipolar disorder, unspecified; F12.90 Cannabis use, unspecified, uncomplicated
CPT/HCPCS: 36415; 80053; 82803; 84132; 84703; 85025; 87040; 87502; 94640; 96365; 96375; 99285

== ENCOUNTER 2017-05-26 00:09 | Emergency (ER) ==
[2017-05-26 00:09] VITALS: BMI 20.4
[2017-05-26 00:21] VITALS: BP 121/82; TEMP 98
[2017-05-26] MEDS ORDERED: ATIVAN PO STA (00:38)
--- NOTE | 2017-05-26 00:43 | ED.PDOC ---
General ED Provider: Dr. RACHELE PERES Chief Complaint: Behavioral Complaint Stated Complaint: Patient was recently discharged from the hospital with pneumonia where she had been getting Ativan for anxiety due to steroids causing panic attacks. She was discharged with steroids tablet but not given any Ativan. Since discharge she has had severe anxiety feeling like her heart was beating fast and unable to breath. Time Seen by Physician: 00:15 Mode of Arrival: Walk-In Information Source: Patient Exam Limitations: No limitations Nursing and Triage Documentation Reviewed and Agree: Yes Reviewed sepsis parameters & appropriate labs ordered?: No System Inflammatory Response Syndrome: Not Applicable Sepsis Protocol: For patient's 13 years and over: Temp is 96.8 and below OR 101 and greater Pulse >90 BPM Resp >20/minute Acutely Altered Mental Status Are patient's symptoms suggestive of a new infection, such as: -Pneumonia -Skin, Soft Tissue -Endocarditis -UTI -Bone, Joint Infection -Implantable Device -Acute Abdominal Infection -Wound Infection -Meningitis -Blood Stream Catheter Infection -Unknown System Inflammatory Response Syndrome: Not Applicable Review of Systems - Review Of Systems Constitutional: Reports: No symptoms Eyes: Reports: No symptoms Ears, Nose, Mouth, Throat: Reports: No symptoms Respiratory: Reports: Cough, Short of air Cardiac: Reports: No symptoms GI: Reports: No symptoms : Reports: No symptoms Musculoskeletal: Reports: No symptoms Skin: Reports: No symptoms Neurological: Reports: Anxiety Endocrine: Reports: No symptoms Hematologic/Lymphatic: Reports: No symptoms All Other Systems: Reviewed and Negative Past Medical History - Past Medical History Previously Healthy: Yes Endocrine: Reports: None Cardiovascular: Reports: Other (HEART MURMUR) Respiratory: Reports: Asthma Hematological: Reports: None Gastrointestinal: Reports: None Genitourinary: Reports: None Neuro/Psych: Reports: Bipolar Disorder Musculoskeletal: Reports: None Cancer: Reports: None Last Menstrual Period: HAS IRREGULAR PERIODS Other Pertinent Past Medical History: Bulimia - Surgical History General Surgical History: Reports: None - Family History Family History: Reports: Unknown - Social History Smoking Status: Never smoker Hx Substance Use: No Alcohol Screening: None - Immunizations Tetanus Shot up to Date: (UNKNOWN) Physical Exam - Physical Exam Appearance: Ill-appearing Pain Distress: Mild Psychiatric: Anxious, Depressed Critical Care Note - Critical Care Note Total Time (mins): 0 Course - Course Orders, Labs, Meds: Orders Category Date Time Status Lorazepam [Ativan] MEDS 05/26/17 00:38 Discontinued 1 mg PO ONCE STA Medications Discontinued Medications Generic Name Dose Route Start Last Admin Trade Name Jamal PRN Reason Stop Dose Admin Lorazepam 1 mg 05/26/17 00:38 05/26/17 00:44 Ativan PO 05/26/17 00:39 1 mg ONCE STA Administration Vital Signs: Temp Pulse Resp BP Pulse Ox 05/26/17 00:11 98 F 93 H 24 121/82 98 Departure - Departure Time of Disposition: 01:20 Disposition: HOME SELF-CARE Discharge Problem: Acute anxiety Instructions: Panic Attack (ED) Condition: Good Pt referred to PMD for follow-up: Yes IPMP verified?: No Additional Instructions: Take Buspar as needed for anxiety . If it does not work then Try Ativan STOP taking Steroid Medications for now as it may be causing your anxiety. Complete your antibiotics. Prescriptions: Buspirone HCl 5 mg PO TID #20 tablet Lorazepam [Ativan] 0.25 mg PO BID #10 tablet Allergies/Adverse Reactions: Allergies nickel Adverse Reaction (Verified 05/26/17 00:20) Penicillins Adverse Reaction (Verified 05/26/17 00:20) Sulfa (Sulfonamide Antibiotics) Adverse Reaction (Verified 05/26/17 00:20) Home Medications: Ambulatory Orders Levofloxacin [Levaquin] 500 mg PO DAILY #4 tablet 05/24/17 Prednisone 10 mg PO BIDWM #10 tablet 05/24/17 Albuterol Sulfate 0.083% Neb [Albuterol 0.083% Neb] 1 vial NEB DIRECTED 05/26 Buspirone HCl 5 mg PO TID #20 tablet 05/26/17 Lorazepam [Ativan] 0.25 mg PO BID #10 tablet 05/26/17 Disposition Discussed With: Patient, Family
== END 2017-05-26 01:28 | disposition home or self-care (01) ==
LOC: ED 00:09
DX: F41.9 Anxiety disorder, unspecified (principal)
CPT/HCPCS: 99282

== ENCOUNTER 2017-10-19 13:33 | Emergency (ER) ==
[2017-10-19 13:44] VITALS: BP 121/82; TEMP 98.3; BMI 21.9
[2017-10-19] MEDS ORDERED: SODIUM CHLORIDE 0.9%-KCL 20 MEQ 1,000 ML IV STA (13:53)
[2017-10-19] MEDS ORDERED: ZOFRAN 4 MG/2 ML IVP STA (13:54)
--- NOTE | 2017-10-19 13:57 | ED.PDOC ---
General ED Provider: Dr. REFUGIO CORTÉS MD Chief Complaint: Nausea/Vomiting Stated Complaint: n/v x one month Time Seen by Physician: 01:45 Mode of Arrival: Walk-In Information Source: Patient Exam Limitations: No limitations Nursing and Triage Documentation Reviewed and Agree: Yes Does patient meet sepsis criteria?: No System Inflammatory Response Syndrome: Not Applicable Sepsis Protocol: For patient's 13 years and over: Temp is 96.8 and below OR 101 and greater Pulse >90 BPM Resp >20/minute Acutely Altered Mental Status Are patient's symptoms suggestive of a new infection, such as: -Pneumonia -Skin, Soft Tissue -Endocarditis -UTI -Bone, Joint Infection -Implantable Device -Acute Abdominal Infection -Wound Infection -Meningitis -Blood Stream Catheter Infection -Unknown GI Complaint Exam - Vomiting/Diarrhea Complaint/Exam Onset/Duration: one month Symptoms Are: Still present Initial Severity: Mild Current Severity: Moderate Character of Vomiting: Reports: Non-bilious Aggravating: Reports: Food Alleviating: Reports: NPO Related History: Reports: Similar episode, Recent antibiotics (presently ) Review of Systems - Review Of Systems Constitutional: Reports: No symptoms Eyes: Reports: No symptoms Ears, Nose, Mouth, Throat: Reports: No symptoms Respiratory: Reports: No symptoms Cardiac: Reports: No symptoms GI: Reports: Constipated, Nausea, Vomiting : Reports: No symptoms Musculoskeletal: Reports: No symptoms Skin: Reports: No symptoms Neurological: Reports: No symptoms Endocrine: Reports: No symptoms Hematologic/Lymphatic: Reports: No symptoms All Other Systems: Reviewed and Negative Past Medical History - Past Medical History Previously Healthy: Yes Endocrine: Reports: None Cardiovascular: Reports: Other (HEART MURMUR) Respiratory: Reports: Asthma Hematological: Reports: None Gastrointestinal: Reports: None Genitourinary: Reports: None Neuro/Psych: Reports: Bipolar Disorder Musculoskeletal: Reports: None Cancer: Reports: None Last Menstrual Period: unknown Other Pertinent Past Medical History: Bulimia - Surgical History General Surgical History: Reports: None - Family History Family History: Reports: Unknown - Social History Smoking Status: Never smoker Hx Substance Use: Yes (marijuana) Alcohol Screening: None Physical Exam - Physical Exam Appearance: Thin Ill-appearing: Mild Pain Distress: None Eyes: VANIA, EOMI, Conjunctiva clear ENT: Ears normal, Nose normal, Oropharynx normal Respiratory: Airway patent, Breath sounds clear, Breath sounds equal, Respirations nonlabored Cardiovascular: RRR, Pulses normal, No rub, No murmur GI/: Soft, Nontender, No masses, No Organomegaly, Bowel sounds hypoactive Musculoskeletal: Normal strength, ROM intact, No edema, No calf tenderness Skin: Warm, Dry, Normal color Neurological: Sensation intact, Motor intact, Reflexes intact, Cranial nerves intact, Alert, Oriented Psychiatric: Mood appropriate, Anxious Re-Evaluation - Re-Evaluation Time of Re-Evaluation: 15:00 (i feel much better) Vital Signs Stable: Yes Appearance: NAD Lungs: Clear Neuro: Alert and Oriented X3 CV: RRR Critical Care Note - Critical Care Note Total Time (mins): 0 Course - Course Orders, Labs, Meds: Orders Category Date Time Status Ondansetron HCl/Pf [Zofran 4 mg/2 ml] MEDS 10/19/17 13:54 Discontinued 4 mg IVP ONCE STA Potassium Chloride in 0.9%NaCl [Sodium Chloride 0.9%- MEDS 10/19/17 13:53 Discontinued KCl 20 Meq] 1,000 ml IV BOLUS Medications Discontinued Medications Generic Name Dose Route Start Last Admin Trade Name Freq PRN Reason Stop Dose Admin Potassium Chloride/Sodium Chloride 1,000 mls @ 500 mls/hr 10/19/17 13:53 14:12 Sodium Chloride 0.9%-Kcl 20 Meq IV 10/19/17 15:52 500 mls/hr BOLUS STA Administration Ondansetron HCl 4 mg 10/19/17 13:54 10/19/17 14:12 Zofran 4 Mg/2 Ml IVP 10/19/17 13:55 4 mg ONCE STA Administration Vital Signs: Temp Pulse Resp BP Pulse Ox 10/19/17 13:34 98.3 F 87 20 121/82 99 Departure - Departure Time of Disposition: 16:10 Disposition: HOME SELF-CARE Discharge Problem: IUP (intrauterine ), incidental, Nausea & vomiting Condition: Good Pt referred to PMD for follow-up: Yes IPMP verified?: No Allergies/Adverse Reactions: Allergies nickel Adverse Reaction (Verified 10/19/17 13:45) Penicillins Adverse Reaction (Verified 10/19/17 13:45) Sulfa (Sulfonamide Antibiotics) Adverse Reaction (Verified 10/19/17 13:45) Home Medications: Ambulatory Orders Levofloxacin [Levaquin] 500 mg PO DAILY #4 tablet 05/24/17 Prednisone 10 mg PO BIDWM #10 tablet 05/24/17 Albuterol Sulfate 0.083% Neb [Albuterol 0.083% Neb] 1 vial NEB DIRECTED 05/26 Buspirone HCl 5 mg PO TID #20 tablet 05/26/17 Lorazepam [Ativan] 0.25 mg PO BID #10 tablet 05/26/17
== END 2017-10-19 16:18 | disposition home or self-care (01) ==
LOC: ED 13:33
DX: R11.2 Nausea with vomiting, unspecified (principal); Z33.1 Pregnant state, incidental
CPT/HCPCS: 96361; 96374; 99283

== ENCOUNTER 2017-10-24 16:06 | Outpatient (CLI) | END 2017-10-24 16:07 | disposition home or self-care (01) | LOC: FCC-LAB 16:06 | PROVIDERS: ATTEND Family Medicine | DX: Z79.899 Other long term (current) drug therapy (principal); Z34.90 Encounter for supervision of normal pregnancy, unspecified, unspecified trimester | CPT/HCPCS: 36415; 80306; 84702 ==

== ENCOUNTER 2017-10-27 16:21 | Emergency (ER) ==
[2017-10-27 16:28] VITALS: BP 106/67; TEMP 98.6; BMI 22.3
--- NOTE | 2017-10-27 16:51 | ED.PDOC ---
General ED Provider: Dr. OLINDA NEGRETE Chief Complaint: Medication Refill Stated Complaint: MED REFILL ZOFRAN Time Seen by Physician: 16:33 Mode of Arrival: Walk-In Information Source: Patient Primary Care Provider: MARIA EUGENIA PARRISH Nursing and Triage Documentation Reviewed and Agree: Yes Does patient meet sepsis criteria?: Yes If yes, has appropriate treatment been initiated?: No System Inflammatory Response Syndrome: Not Applicable Sepsis Protocol: For patient's 13 years and over: Temp is 96.8 and below OR 101 and greater Pulse >90 BPM Resp >20/minute Acutely Altered Mental Status Are patient's symptoms suggestive of a new infection, such as: -Pneumonia -Skin, Soft Tissue -Endocarditis -UTI -Bone, Joint Infection -Implantable Device -Acute Abdominal Infection -Wound Infection -Meningitis -Blood Stream Catheter Infection -Unknown GI Complaint Exam - Vomiting/Diarrhea Complaint/Exam Onset/Duration: 1 WEEK Symptoms Are: Still present Episodes of Vomiting over last 24 Hours: 0 Episodes of Diarrhea Over Last 24 Hours: 0 Current Severity: None Aggravating: Reports: None Alleviating: Reports: None Associated Signs and Symptoms: Denies: Dizziness, Light-headedness, Melena, Hematemesis, Fever, Abdominal pain, Cramping Related History: Reports: Similar episode (ON ZOFRAN 6 WEEK ) Non-GI Risk Factors: Reports: None Surgical Obstruction Risk Factors: Reports: None Related Surgical History: Reports: None Abdominal Findings: Present: None Review of Systems - Review Of Systems Constitutional: Reports: No symptoms Eyes: Reports: No symptoms Ears, Nose, Mouth, Throat: Reports: No symptoms Respiratory: Reports: No symptoms Cardiac: Reports: No symptoms GI: Reports: Nausea : Reports: No symptoms Musculoskeletal: Reports: No symptoms Skin: Reports: No symptoms Neurological: Reports: No symptoms Endocrine: Reports: No symptoms Hematologic/Lymphatic: Reports: No symptoms All Other Systems: Reviewed and Negative Past Medical History - Past Medical History Previously Healthy: Yes Endocrine: Reports: None Cardiovascular: Reports: Other (HEART MURMUR) Respiratory: Reports: Asthma Hematological: Reports: None Gastrointestinal: Reports: None Genitourinary: Reports: None Neuro/Psych: Reports: Bipolar Disorder Musculoskeletal: Reports: None Cancer: Reports: None Last Menstrual Period: first of july Other Pertinent Past Medical History: Bulimia - Surgical History General Surgical History: Reports: None - Family History Family History: Reports: Unknown - Social History Smoking Status: Never smoker Hx Substance Use: Yes (marijuana) Alcohol Screening: None Physical Exam - Physical Exam Appearance: Well-appearing, No pain distress, Well-nourished Eyes: VANIA, EOMI, Conjunctiva clear ENT: Ears normal, Nose normal, Oropharynx normal Respiratory: Airway patent, Breath sounds clear, Breath sounds equal, Respirations nonlabored Cardiovascular: RRR, Pulses normal, No rub, No murmur GI/: Soft, Nontender, No masses, Bowel sounds normal, No Organomegaly Musculoskeletal: Normal strength, ROM intact, No edema, No calf tenderness Skin: Warm, Dry, Normal color Neurological: Sensation intact, Motor intact, Reflexes intact, Cranial nerves intact, Alert, Oriented Psychiatric: Affect appropriate, Mood appropriate Critical Care Note - Critical Care Note Total Time (mins): 0 Course - Course Vital Signs: Temp Pulse Resp BP Pulse Ox 10/27/17 16:21 98.6 F 85 18 106/67 98 Departure - Departure Time of Disposition: 16:50 Disposition: HOME SELF-CARE Discharge Problem: Nausea, Medication refill Instructions: Medicine Refill (ED) Condition: Good Pt referred to PMD for follow-up: Yes IPMP verified?: No Additional Instructions: Please call your Family Physician as soon as possible to schedule a follow-up appointment. Allergies/Adverse Reactions: Allergies nickel Adverse Reaction (Verified 10/27/17 16:29) Penicillins Adverse Reaction (Verified 10/27/17 16:29) Sulfa (Sulfonamide Antibiotics) Adverse Reaction (Verified 10/27/17 16:29) Home Medications: Ambulatory Orders 1 [No Reported Medications] 10/27/17
== END 2017-10-27 17:01 | disposition home or self-care (01) ==
LOC: ED 16:21
DX: R11.0 Nausea (principal); Z76.0 Encounter for issue of repeat prescription
CPT/HCPCS: 99282